=== PATIENT | female | born 1985 | race Hispanic/Latino ===

== ENCOUNTER 2020-05-15 06:19 | Day surgery (SDC) | payer OTHER ==
[2020-05-10 11:26] LABS: BASOPHILS % (AUTO) 0.3 % (0.0-5.0); EOSINOPHILS % (AUTO) 1.8 % (0.0-8.0); HEMATOCRIT 32.5 % (36-48); LYMPHOCYTES % (AUTO) 23.2 % (21.0-51.0); MEAN CORPUSCULAR HEMOGLOBIN 21.8 pg (27.0-33.0); MEAN CORPUSCULAR HGB CONC 29.2 g/dL (32.0-36.0); MEAN CORPUSCULAR VOLUME 74.5 fL (79-99); MONOCYTES % (AUTO) 6.5 % (3.0-13.0); NEUTROPHILS % (AUTO) 67.8 % (40.0-77.0); PLATELET COUNT (AUTO) 319 K/uL (130-400); RED BLOOD CELL COUNT(AUTO) 4.36 MIL/uL (4.00-5.50); RED CELL DISTRIBUTION WIDTH 18.3 % (11.0-15.5); WHITE BLOOD COUNT (AUTO) 7.9 K/uL (4.8-10.8)
[2020-05-10 11:43] LABS: CREATININE 0.8 mg/dL (0.5-1.5); POTASSIUM 3.9 mmol/L (3.5-5.1)
[2020-05-12 08:50] VITALS: BP 155/90
--- NOTE | 2020-05-12 09:40 | NUR ---
REPORT CALLED DR JACKSON AND REPORTED CBC RESULTS AND THAT PT REPORTED BEING COVID POSITIVE BACK ON March. PT HAS BEEN ASYMPTOMATIC SINCE April, BUT COVID TEST STILL PENDING. OK TO PROCEED PER RECOMMENDED PROCEDURE FOR COVID.
--- NOTE | 2020-05-12 14:01 | NUR ---
report anesthesia [facility] [employer] [facility] informed of positive covid test on april 15 but pt reported asymptomic since april 29. covid test still pending. no new orders at this time.
--- NOTE | 2020-05-12 15:00 | NUR ---
reddy curtis pt was called with arrival time and reminded of results and email from [facility]. pt now stating she was tested after april 15 that she was symptomatic on the . pt will try to fax results and jhon burgos rn employee matthew informed of above change. jhon will also try to get results from [facility]. ok for pt to proceed
[2020-05-15] VITALS (17 sets, daily range): BP systolic 122–149; BP diastolic 71–93
[~2020-05-15] VITALS: Ht 162.6 cm; Wt 116.8 kg
[2020-05-15] MEDS: CEFAZOLIN SODIUM 1 GM VIAL IVP SCH ×2 (06:00→07:50)
[~2020-05-15 06:19] MED LIST: ESCI10TA PO; IBUP-2070 PO; PROM12.513 PO
--- NOTE | 2020-05-15 07:28 | NUR ---
POTENTIAL FOR INFECTION: SHAVED LEFT HAND TO BELOW LOWER FOREARM, FOLLOWED BY WIPING WITH LEAH: 2% CHLORHEXIDINE GLUCONATE CLOTH PATIENTS PRE-OP SKIN PREP PER WANDER HALL.
[2020-05-15] MEDS ORDERED: LACTATED RINGERS 1000ML 1,000 ML IV ONE (07:30)
[2020-05-15] MEDS ORDERED: BUPIVACAINE/PF 0.25% 30ML VIAL IJ ONE (07:35)
[2020-05-15] MEDS ORDERED: DEXAMETHASONE SOD PHOSPHATE 10MG/ML 1ML VIAL ONE (07:38)
[2020-05-15] MEDS ORDERED: MIDAZOLAM HCL 1 MG/ML 2ML VIAL ONE (07:38)
[2020-05-15] MEDS ORDERED: LIDOCAINE PF 2% 5ML ABBOJECT ONE (07:38)
[2020-05-15] MEDS ORDERED: ONDANSETRON HCL 4 MG/2 ML VIAL ONE (07:38)
[2020-05-15] MEDS ORDERED: CEFAZOLIN SODIUM 1 GM VIAL ONE (07:38)
[2020-05-15] MEDS ORDERED: PROPOFOL 10 MG/ML 20ML VIAL IV ONE (07:39)
[2020-05-15] MEDS ORDERED: FENTANYL CITRATE PF 50 MCG/1 ML 2ML VIAL ONE ×2 (07:39→08:05)
[2020-05-15] MEDS ORDERED: ROCURONIUM 10MG/1ML SYR 10 MG/ML ML ONE (07:42)
[2020-05-15] MEDS ORDERED: EPHEDRINE SULFATE 50 MG/ML AMPULE ONE (08:30)
[2020-05-15] MEDS ORDERED: NEOSTIGMINE 5MG/5ML SYR IV ONE (08:39)
[2020-05-15] MEDS ORDERED: GLYCOPYRROLATE 1 MG/5 ML SYRINGE ONE (08:39)
[2020-05-15] MEDS ORDERED: TYL2 PO (09:00)
[2020-05-15] MEDS ORDERED: CEPH-578 PO (09:00)
--- NOTE | 2020-05-15 10:40 | NUR ---
Spoke to doctor Roth because patient voiced she gets a yeast infection when she takes antibiotics, and as per doctor Roth patient can hold antibiotics no need to take them post surgery, I also advised Doctor Roth of lab result positive covid.
[2020-05-15] MEDS ORDERED: IBUP-2070 PO (10:43)
== END 2020-05-15 10:45 | disposition home or self-care (01) ==
LOC: DAH 06:19
PROVIDERS: ATTEND Orthopaedic Surgery
DX: G56.02 Carpal tunnel syndrome, left upper limb (principal); E66.01 Morbid (severe) obesity due to excess calories; F32.9 Major depressive disorder, single episode, unspecified; K21.9 Gastro-esophageal reflux disease without esophagitis; F17.290 Nicotine dependence, other tobacco product, uncomplicated; Z79.01 Long term (current) use of anticoagulants; U07.1 COVID-19; Z98.890 Other specified postprocedural states; Z98.891 History of uterine scar from previous surgery; Z68.41 Body mass index [BMI] 40.0-44.9, adult; Z83.3 Family history of diabetes mellitus; Z82.49 Family history of ischemic heart disease and other diseases of the circulatory system; Z72.89 Other problems related to lifestyle
CPT/HCPCS: 36415; 64721; 80048; 84703; 85025; A4213; A4215; A4221; A4222; A4223; A4649; A4663; A4930; A6223; J0690 ×2; J1100; J2001; J2250; J2405; J2704; J2710; J3010 ×2; J3490 ×3; J7030; J7120; U0003

== ENCOUNTER 2021-04-27 08:16 | Emergency (ER) | payer BC, OTHER ==
[~2021-04-27] VITALS: Ht 162.6 cm; Wt 104.3 kg
[~2021-04-27 08:16] MED LIST changes: +CEPH-578 PO; +TYL2 PO
[2021-04-27 09:36] LABS: BASOPHILS % (AUTO) 0.6 % (0.0-5.0); EOSINOPHILS % (AUTO) 3.5 % (0.0-8.0); HEMATOCRIT 44.1 % (36-48); LYMPHOCYTES % (AUTO) 24.6 % (21.0-51.0); MEAN CORPUSCULAR HEMOGLOBIN 30.3 pg (27.0-33.0); MEAN CORPUSCULAR HGB CONC 32.7 g/dL (32.0-36.0); MEAN CORPUSCULAR VOLUME 92.8 fL (79-99); MONOCYTES % (AUTO) 5.8 % (3.0-13.0); NEUTROPHILS % (AUTO) 65.2 % (40.0-77.0); PLATELET COUNT (AUTO) 270 K/uL (130-400); RED BLOOD CELL COUNT(AUTO) 4.75 MIL/uL (4.00-5.50); RED CELL DISTRIBUTION WIDTH 13.6 % (11.0-15.5); WHITE BLOOD COUNT (AUTO) 9.4 K/uL (4.8-10.8)
[2021-04-27 09:46] LABS: CARBON DIOXIDE 30 mmol/L (21-32); CHLORIDE 102 mmol/L (101-111); CREATININE 0.7 mg/dL (0.5-1.5); GLOMERULAR FILTR. RATE CALC 100 mL/min (>60); GLUCOSE,RANDOM 126 mg/dL (70-105); POTASSIUM 3.1 mmol/L (3.5-5.1); SODIUM SERUM 140 mmol/L (136-145); UREA NITROGEN, BLOOD 15 mg/dL (7-18)
[2021-04-27 09:58] LABS: ALANINE AMINOTRANSFERASE 57 U/L (12-78); ALBUMIN 3.7 g/dL (3.5-5.0); ASPARTATE AMINOTRANSFERASE 22 U/L (10-37); BILIRUBIN,TOTAL 0.4 mg/dL (0.2-1.0); CREATINE KINASE, TOTAL 133 U/L (21-232); MYOGLOBIN 45 ng/mL (10-92); TOTAL PROTEIN, SERUM 7.4 g/dL (6.0-8.3); TROPONIN I < 0.04 ng/mL (0.00-0.06)
[2021-04-27] MEDS ORDERED: SUCRALFATE 1 GM TABLET PO SCH (10:00)
[2021-04-27] MEDS ORDERED: FAMOTIDINE 20MG TAB PO SCH (10:00)
[2021-04-27] MEDS ORDERED: HYOSCYAMINE SULFATE 0.125 MG TAB.SUBL SL SCH (10:00)
[2021-04-27] MEDS ORDERED: KCL 20 MEQ ERTAB PO SCH (10:39)
[2021-04-27] MEDS ORDERED: SUCR1TAB28 PO (13:11)
[2021-04-27] MEDS ORDERED: FAMO-136 PO (13:11)
== END 2021-04-27 13:29 | disposition home or self-care (01) ==
LOC: EDH 08:16
DX: R07.89 Other chest pain (principal); I10 Essential (primary) hypertension; F41.9 Anxiety disorder, unspecified; F17.200 Nicotine dependence, unspecified, uncomplicated; Z79.1 Long term (current) use of non-steroidal anti-inflammatories (NSAID); Z79.899 Other long term (current) drug therapy
CPT/HCPCS: 36415; 71045; 80053; 82550; 83690; 83874; 84484; 85025; 93005